=== PATIENT | female | born 1940 | race Caucasian/White ===

== ENCOUNTER 2018-11-07 08:00 | Outpatient (CLI) | payer OTHER, SELFPAY ==
--- NOTE | 2018-11-08 10:00 | DIABASSESS_ITS ---
DESCRIPTION: Hanane Vences at 78 years old presents for nutrition consult focused on diabetes management. She is wondering why she is referred, however she had a recent visit with her PCP who states she is looking for dietary recommendations and this was explained to her. She eats cereal, milk, banana and orange juice for berakfast; cheese turkey sandwich with mayonaise for lunch with fruit.? She has a vodka with orange juice and a glass of wine with dinner.? They often eat at the [employer] and she shares an entree of fish, salad and vegetable with her partner. She admits to a small portion of sweets occasionally.? BMI 23 Tests her blood sugars every morning always in the 140s this AM 145mg/dl.? She takes Metformin 500mg twice daily without side effects.? Her medical record indicates she also takes Glipizide without hypoglycemic symptoms.? A1c 7.5 Hanane takes walks or does yoga 7 days a week. INTERVENTION:? Reviewed diabetes food guide focused on mixing carbohydrate foods iwth protein/fat at meals and she voices interest in the guide.? Reviewed ADA guidelines for alcohol consumption for people at goal for their A1c.? Answered questions regarding varying food choices in her day and foods to add to maintain her weight. Explained if she is interested in finding out how foods affect her blood sugar she could monitor at different times of the day, i.e. before lunch or before bed to assess impact of food on blood sugar as well as range of? glycemic variation. Also reassured her her A1c is at goal considering her age. Reassured her she was at low risk for ferry terminal agent complications from uncontrolled diabetes. PLAN:? Hanane will use the diabetes food guide to help answer her food questions.? She will consider monitoring her blood sugars before lunch after her largest carbohydrate load. She knows to be in touch if she has further questions. Individual MNT 35 MINUTES. No DM group education series being offered at this time.
== END 2018-11-07 08:20 ==
PROVIDERS: Visit Provider Dietitian, Registered
DX: E11.9 Type 2 diabetes mellitus without complications (principal); Z79.84 Long term (current) use of oral hypoglycemic drugs; Z71.3 Dietary counseling and surveillance
CPT/HCPCS: 97802

== ENCOUNTER 2019-09-22 09:47 | Emergency (ER) | payer OTHER, SELFPAY ==
[2019-09-22] VITALS (35 sets, daily range): BP systolic 130–167; BP diastolic 56–101; PULSE 79–94; RESP 14–34; TEMP 37; O2SAT 96–100
--- NOTE | 2019-09-22 09:45 | RT.EKG_ITS ---
APPROVED REPORT Exam: Resting ECG Patient Location: E HR:81 bpm ECG Measurements Heart Rate 81 AXIS AK 150 P 69 QRSd 91 QRS 55 QT 363 T 31 QTc 422 Conclusion Sinus rhythm. Rate 81, no st elevation, non specific st changes inferior
--- NOTE | 2019-09-22 09:50 | W.ED.GENAD ---
Discharge Plan Disposition Patient Disposition: HOME Condition: Stable Discharge Details Chief Complaint: Chest Pain Clinical Impression: Chest pain, Elevated WBC count, Hypomagnesemia, Hyponatremia, Thyroid nodule Primary Care Provider: Unknown,Unknown ED Provider: Eneida Jimenes Home Meds and New Rx's Prescriptions: Continued metformin 1,000 mg Tablet 1,000 mg PO BID RF: 0 atorvastatin 40 mg Tablet 40 mg PO DAILY RF: 0 glipizide 10 mg Tablet 10 mg PO BID RF: 0 losartan 100 mg Tablet 100 mg PO DAILY RF: 0 Discharge Instructions Instructions: Chest Pain (ED), Hyponatremia (ED), Hypomagnesemia (ED) Additional Instructions: Your evaluation here is not suggestive of acute cardiac disease. You do have an elevated white count but did not have any evidence of infection at this point if you do develop symptoms such as fever/chills, shortness of breath, difficulty breathing, cough, belly pain or other new/worsening symptoms please seek care urgently once again. Your sodium and magnesium were low, you did have replenishment of both of these today. Your CT scan is concerning for nodule of your thyroid that should be followed up with your primary care. Please discuss at primary care appointment. Please call primary care on Tuesday to schedule follow-up appointment. Please return with any new or worsening symptoms. Referrals: Ricky Barrera MD [ [facility] STAFF PHYSICIAN] - Discharge Data Discharge Date/Time-TO BE ENTERED AT DEPARTURE: 09/22/19 15:00 Medical Decision Making Patient pepe 79-year-old female presents today with chief complaint of chest discomfort. Reports that she noted this around 8 AM and indicates the entirety of the upper chest area of discomfort. She reports the pain is maximal with deep breathing. Significant other reports that she did do push-ups yesterday and also had a cough last night after eating. Last night, the patient had reported foreign body sensation in her throat which is since resolved. She has not noticed this to be exertionally based. She has not had pain like this historically. No known cardiac disease. No known respiratory issues. No recent travel. Significant other is present and quite helpful in obtaining history as the patient does have some baseline confusion. Patient has had a history of left-sided breast cancer treated with radiation. She does have a radiation scar on the left lateral chest wall which they report is chronic. She states that radiation was last for an 1990. The radiation scar has had infections but it appears to be healthy per their report at this time. On exam, patient is resting comfortably. She does appear slightly anxious. Vital signs are stable and she is slightly hypertensive with a blood pressure 154/72 otherwise within normal limits. Lungs are clear, normal cardiac exam. She has no pain with palpation about the chest wall. No pain with stressing of the upper extremities trying to mimic her push-up she was doing yesterday. No crepitus. Abdominal exam is benign. No lower extremity swelling or calf tenderness. EKG was reviewed by . Patient is in sinus rhythm with a rate of 81, no acute ischemic changes noted. Labs were reviewed. Patient is a white count 14.96. Unclear where the infection is emanating from. She does have the unusual-looking scar on the left side of her chest but is nontender for the patient. It seems very localized to the area that is indurated and elevated. There is some underlying white tissue but this appears to be more consistent with calcifications. She has not endorsing any symptoms of illness otherwise. Her sodium is low at 130, patient will receive 1 L of normal saline. Magnesium is low at 1.4, will give her 1 g of here. Otherwise, electrolytes are within normal limits. Creatinine is 1.04. Troponin is less than 0.05. Chest x-ray was reviewed by radiologist ILANINGS: Lungs: Lung markings are diffusely coarsened with borderline hyperinflation. No definite dense consolidation. Left perihilar partially calcified density is irregularly marginated and is nonspecific at 4.5 x 1.7 x 3.1 cm. It is located relatively anteriorly on the lateral view. I am uncertain of the etiology here. It could be granulomatous or related to a rib end. Pleural space: No effusion or pneumothorax. Heart/Mediastinum: Heart size is not enlarged. The mediastinum is not widened. Mild sclerosis of the aortic arch. Bones/joints: Degenerative changes along the spine without acute fracture. There is a scoliosis. Soft tissues: The left breast is partially absent consistent with the given history of breast cancer. IMPRESSION: 1. No definite acute abnormality. 2. Partially calcified left thoracic lesion. CT may be helpful. This is unusual entity noted on imaging is consistent with the patient's scar that has been discussed at length with the patient and her significant other. Patient's d-dimer is elevated at emergency 1614 discussed this finding with the patient. And her family. She has been sedentary does have a history of cancer. She is not anticoagulated. I do feel that CT for PE protocol would be appropriate at this point. Also obtain repeat troponin. FINDINGS: Pulmonary arteries: Motion artifact limits evaluation of the pulmonary arteries beyond the 3rd order branches but I see no large or central pulmonary embolism. Aorta: Atherosclerotic changes noted in the ectatic aorta without gross aneurysm or dissection. Atherosclerotic changes of the coronary arteries. Atherosclerotic changes of the abdominal aorta extending into the mesenteric arteries. Thyroid: Low-density thyroid lesion on the right measures 19 mm can be followed. Lungs: Mild axial thickening in the lungs without dense consolidation. I favor dependent atelectatic changes in the bases. No spiculated mass or nodule. Pleural space: Unremarkable. No pneumothorax. No pleural effusion. Heart: The heart is not enlarged but there is a small amount of pericardial fluid present. No significant mediastinal fluid. Mediastinal space: Small hiatal hernia Bones/joints: The remaining bony elements demonstrate degenerative changes without acute fracture. No additional lytic or blastic disease. Soft tissues: The left thoracic calcification identified on the plain film appears to represent a densely calcified region of breast parenchyma along the superior margin measuring 2.3 x 4.3 x 3.7 cm. The subjacent bony elements here, including the distal clavicle and anterior 1st rib, are sclerotic. This would raise the question of prior radiotherapy changes but correlation with oncologic history is recommended. I have no prior imaging of this breast lesion. It requires appropriate follow-up. The volume of left breast tissue is diminished on the left comparison to the right suggesting prior partial mastectomy. IMPRESSION: 1. Motion limited exam without large or central pulmonary embolism. 2. Clear lungs. 3. Densely calcified left breast parenchyma, with volume loss of the left breast in comparison to the right, probably post treatment related. Sclerotic changes in the underlying bony elements. Correlation with oncologic history is suggested. In the absence of prior studies, this breast lesion also requires appropriate follow-up. 4. Small amount of pericardial fluid. 5. Atherosclerotic changes of the aorta and coronary arteries. 6. Thyroid lesion requiring appropriate follow-up. Recommend follow-up thyroid ultrasound. Discussed these findings with the patient and her significant other. They will follow-up with primary care regarding thyroid lesion. Initially, they reported the patient did not have a local primary care. However, patient has been seen by [facility] in the past. Typically, they live the majority of the year in [place] but they are staying here secondary to COVID-19. They will discuss this further with primary care. Repeat troponin remains stable at less than 0.05 and no changes noted in the EKG. Discussed this with patient and significant other. We did discuss disposition at length. We did discuss inpatient versus outpatient management. At this point, they prefer outpatient management and do live locally and he will return with worsening symptoms. They will follow-up closely with primary care. Strict return precautions were given. We discussed the discomfort it may be associated with the patient she was doing yesterday, potentially from the cough that she had birthday last night or from stress/anxiety anxiety as this is been an issue for her in the past. All of their questions and concerns were addressed in agreement this plan. HPI General Mode of arrival: ambulatory. Date/Time Provider Initiated Documentation: 09/22/19 09:49. Limitations to Documentation: altered mental status (mild confusion at baseline). History of Present Illness 79 year old F presents to the emergency department with the chief complaint of Chest discomfort, described as mild, Quality is described as aching, and is localized to the chest. Patient reports no radiation. Patient started experiencing this hour(s) (noted this AM) and it has been intermittent. No relieving factors improve symptom(s), Other factors that worsen symptoms (deep breathing, non exertional) . Patient notes confusion (baseline, unchanged per signficant other), chest pain and cough (partner reports cough last night briefly after eating with FB sensation); denies diaphoresis, fever/chills, loss of appetite, nausea/vomiting, rash (chronic left sided chest lesion that is unchanged from baseline), shortness of breath and weakness. Patient did receive the following treatments prior to arrival, none Related Data Home Medications Medication Instructions Recorded Confirmed atorvastatin 40 mg PO DAILY 09/22/19 09/22/19 glipizide 10 mg PO BID 09/22/19 09/22/19 losartan 100 mg PO DAILY 09/22/19 09/22/19 metformin 1,000 mg PO BID 09/22/19 09/22/19 Allergies Allergy/AdvReac Type Severity Reaction Status Date / Time No Known Allergies Allergy Unverified 09/22/19 11:50 Review of Systems Constitutional Constitutional: Reports as per HPI, Denies chills, Denies fever(s), Denies headache(s), Denies lethargy and Denies poor appetite Eyes Eyes: Denies change in vision ENT Ears, Nose, Mouth, and Throat: Denies dizziness and Denies headache(s) Cardiovascular Cardiovascular: Reports as per HPI, Reports chest pain, Denies leg edema, Denies lightheadedness, Denies radiating jaw, neck or arm pain, Denies palpitations, Denies dyspnea and Denies dyspnea on exertion Respiratory Respiratory: Reports as per HPI, Denies chest congestion, Denies cough, Reports pain on inspiration, Denies pain with cough, Denies dyspnea, Denies dyspnea on exertion and Denies wheezing Gastrointestinal Gastrointestinal: Reports as per HPI, Denies abdominal pain, Denies diarrhea, Denies nausea and Denies vomiting Musculoskeletal Musculoskeletal: Reports as per HPI and Denies back pain Integumentary/Breasts Skin/Breast: Reports as per HPI and Denies rash Neurologic Neurologic: Reports as per HPI, Denies dizziness and Denies headache(s) Endocrine Endocrine: Denies palpitations Allergic/Immunologic Allergic/Immunologic: Denies wheezing [facility] Social History Smoking/Tobacco Use Status: Never Alcohol Intake: current Alcohol Intake frequency: 0-2 drinks per day Substance use type: does not use Current gender identity: female Exam Const General: cooperative, healthy appearing, comfortable, no acute distress and well developed Nutritional Appearance: average body habitus and well nourished Orientation: alert, awake, oriented x3 and confused (baseline mild confusion aparant with furhter questioning, normal per partne) [facility] Head: normal to inspection Ears: hearing grossly normal bilaterally Mouth: moist mucous membranes Chest Chest: normal inspection of the chest, normal palpation of entire chest wall and no crepitus Resp Effort & Inspection: normal respiratory effort, able to speak in complete sentences and no respiratory distress Auscultation: clear to auscultation bilaterally, no rales, no rhonchi and no wheezes Cardio Rate: regular rate Rhythm: regular rhythm Heart Sounds: S1 normal and S2 normal GI Inspection: normal to inspection, no edema and non-distended Palpation: soft, no hepatosplenomegaly, not firm, no guarding, not rigid and nontender Auscultation: normal bowel sounds Back/Spine/Pelvis Back: no CVA tenderness Thoracic/Lumbar Spine: thoracic and lumbar spine normal to inspection Skin General skin exam: no rashes or lesions noted Trauma: no lacerations or abrasions Neuro General: patient alert, patient awake and patient oriented x3 Cognition: normal cognition Speech: speech normal Gait: normal gait Extrem General: normal to inspection, capillary refill normal, no pedal edema, no calf tenderness and normal gait Right upper extremity: normal to inspection (no pain with ROM or resistance of BUE) and full ROM Left upper extremity: normal to inspection and full ROM Psych Appearance: grossly normal and well kempt Mental Status: mental status grossly normal Speech and Movement: speech and movement normal
[2019-09-22 10:15] LABS: Abs Immature Grans 0.05 10^3/uL (0.0-0.06); Absolute Basophil Count 0.03 10^3/uL (0.0-0.2); Absolute Lymphocyte Count 1.23 10^3/uL (1.2-3.4); Basophils % 0.2; Eosinophils % 0.9; HCT 40.9 % (36.0-46.0); HGB 13.4 g/dL (11.2-15.7); Immature Grans % 0.3; Lymphocytes % 8.2; MCH 31.6 pg (27.0-33.0); MCHC 32.8 % (32.0-36.0); MCV 96.5 fL (80-95); MPV 10.2 fL (8.0-11.0); Monocytes % 8.6; Neutrophils % 81.8; Nucleated RBC 0 %; Platelet Count 276 10^3/uL (130-400); RBC 4.24 10^6/uL (3.93-5.22); RDW-SD 41.8 fL; WBC 14.96 10^3/uL (4.4-10.8)
[2019-09-22 10:16] LABS: Absolute Eosinophil Count 0.13 10^3/uL (0.0-0.7); Absolute Monocyte Count 1.29 10^3/uL (0.1-0.8); Absolute Neutrophil Count 12.24 10^3/uL (1.2-6.7)
[2019-09-22 10:34] LABS: ALT 24 U/L (14-59); AST 16 U/L (15-37); Albumin 3.6 g/dL (3.4-5.0); Alkaline Phosphatase 83 U/L (46-116); Anion Gap 5.6 mmol/L (3-11); BUN 16 mg/dL (7-18); Bilirubin, Total 0.7 mg/dL (0.2-1.0); CO2 25.4 mmol/L (21.0-32.0); CREATININE 1.04 mg/dL (0.55-1.02); Calcium 9.4 mg/dL (8.5-10.1); Chloride 99 mmol/L (98-107); Estimated GFR 50.86 (mL/min/1.73m2); Glucose 188 mg/dL (74-106); Magnesium 1.4 mg/dL (1.8-2.4); Potassium 4.3 mmol/L (3.5-5.1); Sodium 130 mmol/L (136-145); Total Protein 8.1 g/dL (6.4-8.2)
[2019-09-22 10:35] LABS: Troponin I < 0.05 ng/mL (<0.06)
--- NOTE | 2019-09-22 10:41 | DI.RAD_ITS ---
EXAM: XR CHEST 2V PA LATERAL CLINICAL HISTORY: CP TECHNIQUE: 2D digital imaging was performed. COMPARISON: No exams were available for comparison FINDINGS: Heart size is normal. The aorta shows calcification. There there is an elongated anterior area of c alcifications which may lie within the anterior left chest wall. There are mild underlying fibrotic changes. No infiltrate, effusion or pulmonary edema is seen. There are no thoracic compression frac tures or evidence of pneumothorax. IMPRESSION: No acute abnormality.
--- NOTE | 2019-09-22 10:46 | DI.VRAD_ITS ---
PROCEDURE INFORMATION: Exam: XR Chest, 2 Views Exam date and time: 09/22/2019 10:38 AM Age: 79 years old Clinical indication: Chest pain; Type not specified; Patient HX: Patient not a good historian. Patient sts had breast cancer 20 yrs ago, ? if patient had surgery. TECHNIQUE: Imaging protocol: XR of the chest Views: 2 views. COMPARISON: No relevant prior studies available. FINDINGS: Lungs: Lung markings are diffusely coarsened with borderline hyperinflation. No definite dense consolidation. Left perihilar partially calcified density is irregularly marginated and is nonspecific at 4.5 x 1.7 x 3.1 cm. It is located relatively anteriorly on the lateral view. I am uncertain of the etiology here. It could be granulomatous or related to a rib end. Pleural space: No effusion or pneumothorax. Heart/Mediastinum: Heart size is not enlarged. The mediastinum is not widened. Mild sclerosis of the aortic arch. Bones/joints: Degenerative changes along the spine without acute fracture. There is a scoliosis. Soft tissues: The left breast is partially absent consistent with the given history of breast cancer. IMPRESSION: 1. No definite acute abnormality. 2. Partially calcified left thoracic lesion. CT may be helpful. Dictated and Authenticated by: Abdias Kumar MD. Ordering:MARYJANE Monique MD
[2019-09-22 11:08] LABS: D-Dimer 1614 ng/mlFEU (<500)
[2019-09-22] MEDS: MAGNESIUM SULFATE 1 GM/100 ML BAG IVPB (11:33)
[2019-09-22] MEDS: Normal Saline 1,000 ML 1000 ML IV (11:33)
--- NOTE | 2019-09-22 12:00 | DI.CT_ITS ---
EXAM: CT CHEST PE CTA CLINICAL HISTORY: pleuritic pain, elevated d-dimer. TECHNIQUE: Imaging Protocol: Axial CT angiography was performed with multi-slice acquisition and mu lti-planar and/or 3D reconstructions. CONTRAST MATERIAL: Intravenous: Omnipaque 350 Contrast volume:100 cc COMPARISON: No exams were available for comparison FINDINGS: Exam is somewhat limited by respiratory motion. Pulmonary Arteries: No evidence of filling defect to suggest pulmonary emboli. Tracheobronchial tree: Patent where visualized. Mediastinum and Dianna: No dominant adenopathy or fluid collection. Pulmonary parenchyma: No consolidation or dominant measurable mass. No architectural distortion. Pleura: No effusion or pneumothorax. Heart: The heart is not dilated. Minimal coronary artery calcifications are seen. Trace pericardial e ffusion. Aorta: Thoracic aorta ectatic. No evidence of dissection. Atherosclerotic changes.. Upper abdomen: Small hiatal hernia. Bones: Degenerative changes. No compression fractures. Soft tissues: There is a dense calcification in the upper left chest wall subcutaneous fat and upper pectoral muscle. The adjacent ribs appear sclerotic. Findings may be secondary to previous radiatio n. Clinical correlation is recommended. There is a small circumscribed nodule in the right lobe the thyroid, likely colloid cyst. IMPRESSION: No evidence of pulmonary embolism. Trace pericardial effusion. Large calcification in the left upper chest wall and adjacent bony changes which could be secondary to previous radiation. Clinical corre lation is recommended. RADIATION DOSE DELIVERED: 257.18mGy.cm Total DLP DATA REPOSITORY: All CT scans at this facility are submitted to the National Radiology Data Registry (NRDR) Dose Index Registry (DIR) with the [employer] (ACR). RADIATION OPTIMIZATION: All CT scans at this facility use at least one of these dose optimization te chniques: automated exposure control; mA and/or kV adjustment per patient size (includes targeted exa ms where dose is matched to clinical indication); or iterative reconstruction.
[2019-09-22 12:09] LABS: Bilirubin Negative (Negative); Blood Trace-intact (Negative); Clarity Clear (Clear); Glucose Negative (Negative); Ketones Negative (Negative); Leukocyte Esterase Negative (Negative); Nitrite Negative (Negative); Urobilinogen 0.2 EU/dL (Up TO 0.2)
[2019-09-22] MEDS: Omnipaque 350 MG/ML 100 ML BTL IJ (12:14)
[2019-09-22] MEDS: Normal Saline - Diluent 50 ML VIAL IV (12:14)
[2019-09-22 12:23] LABS: Epithelial Cells Rare HPF (Negative); WBC Negative HPF (0-5)
[2019-09-22 12:24] LABS: Bacteria Negative HPF (Negative); C & S Indicated? No; Casts 0-2 Hyaline LPF (Negative); Crystals Negative HPF (Negative); Mucus Moderate (Negative)
--- NOTE | 2019-09-22 13:03 | DI.VRAD_ITS ---
PROCEDURE INFORMATION: Exam: CT Angiography Chest With Contrast Exam date and time: 09/22/2019 12:02 PM Age: 79 years old Clinical indication: Chest pain; Type not specified TECHNIQUE: Imaging protocol: Computed tomographic angiography of the chest with intravenous contrast. 3D rendering: MIP and/or 3D reconstructed images were created by the technologist. Radiation optimization: All CT scans at this facility use at least one of these dose optimization techniques: automated exposure control; mA and/or kV adjustment per patient size (includes targeted exams where dose is matched to clinical indication); or iterative reconstruction. Contrast material: OMNIPAQUE 350; Contrast volume: 100 ml; Contrast route: INTRAVENOUS (IV); COMPARISON: CR XR CHEST 2V PA LATERAL 09/22/2019 10:38 AM FINDINGS: Pulmonary arteries: Motion artifact limits evaluation of the pulmonary arteries beyond the 3rd order branches but I see no large or central pulmonary embolism. Aorta: Atherosclerotic changes noted in the ectatic aorta without gross aneurysm or dissection. Atherosclerotic changes of the coronary arteries. Atherosclerotic changes of the abdominal aorta extending into the mesenteric arteries. Thyroid: Low-density thyroid lesion on the right measures 19 mm can be followed. Lungs: Mild axial thickening in the lungs without dense consolidation. I favor dependent atelectatic changes in the bases. No spiculated mass or nodule. Pleural space: Unremarkable. No pneumothorax. No pleural effusion. Heart: The heart is not enlarged but there is a small amount of pericardial fluid present. No significant mediastinal fluid. Mediastinal space: Small hiatal hernia. Lymph nodes: No confluent lymphadenopathy. Bones/joints: The remaining bony elements demonstrate degenerative changes without acute fracture. No additional lytic or blastic disease. Soft tissues: The left thoracic calcification identified on the plain film appears to represent a densely calcified region of breast parenchyma along the superior margin measuring 2.3 x 4.3 x 3.7 cm. The subjacent bony elements here, including the distal clavicle and anterior 1st rib, are sclerotic. This would raise the question of prior radiotherapy changes but correlation with oncologic history is recommended. I have no prior imaging of this breast lesion. It requires appropriate follow-up. The volume of left breast tissue is diminished on the left comparison to the right suggesting prior partial mastectomy. IMPRESSION: 1. Motion limited exam without large or central pulmonary embolism. 2. Clear lungs. 3. Densely calcified left breast parenchyma, with volume loss of the left breast in comparison to the right, probably post treatment related. Sclerotic changes in the underlying bony elements. Correlation with oncologic history is suggested. In the absence of prior studies, this breast lesion also requires appropriate follow-up. 4. Small amount of pericardial fluid. 5. Atherosclerotic changes of the aorta and coronary arteries. 6. Thyroid lesion requiring appropriate follow-up. Recommend follow-up thyroid ultrasound. Dictated and Authenticated by: Abdias Kumar MD. Ordering:MARYJANE Monique MD
[2019-09-22 13:21] LABS: Troponin I < 0.05 ng/mL (<0.06)
== END 2019-09-22 15:00 | disposition home or self-care (01) ==
PROVIDERS: Emergency Provider Physician Assistant
DX: R07.89 Other chest pain (principal); E83.42 Hypomagnesemia; E87.1 Hypo-osmolality and hyponatremia; D72.829 Elevated white blood cell count, unspecified; R93.0 Abnormal findings on diagnostic imaging of skull and head, not elsewhere classified; R79.1 Abnormal coagulation profile
CPT/HCPCS: 36415; 71275; 80053; 93005; 96361; 96365; 99285; 71046; 81003; 81015; 83735; 84484; 85025; 85379; 93010; J3475; J3490

== ENCOUNTER 2022-12-16 15:50 | Outpatient (REF) | payer MEDICARE, SELFPAY ==
[2022-12-16 21:36] LABS: Abs Immature Grans 0.01 10^3/uL (0.0-0.06); Absolute Basophil Count 0.04 10^3/uL (0.0-0.2); Absolute Eosinophil Count 0.21 10^3/uL (0.0-0.7); Absolute Lymphocyte Count 1.78 10^3/uL (1.2-3.4); Absolute Monocyte Count 0.89 10^3/uL (0.1-0.8); Basophils % 0.6; Eosinophils % 3.3; HCT 36.9 % (36.0-46.0); HGB 12.2 g/dL (11.2-15.7); Immature Grans % 0.2; Lymphocytes % 28.1; MCH 30.6 pg (27.0-33.0); MCHC 33.1 % (32.0-36.0); MCV 93 fL (80-95); MPV 11.4 fL (8.0-11.0); Monocytes % 14.1; Neutrophils % 53.7; Platelet Count 228 10^3/uL (130-400); RBC 3.99 10^6/uL (3.93-5.22); RDW 12.1 % (11.7-14.6); RDW-SD 41.6 fL; WBC 6.33 10^3/uL (4.4-10.8)
[2022-12-16 21:52] LABS: ALT 33 U/L (14-59); AST 25 U/L (15-37); Albumin 3.5 g/dL (3.4-5.0); Alkaline Phosphatase 76 U/L (46-116); Anion Gap 7.9 mmol/L (3-11); BUN 19 mg/dL (7-18); Bilirubin, Total 0.3 mg/dL (0.2-1.0); CO2 28.1 mmol/L (21.0-32.0); CREATININE 0.9 mg/dL (0.55-1.02); Calcium 9.8 mg/dL (8.5-10.1); Calculated LDL 38 mg/dL (<100); Chloride 98 mmol/L (98-107); Cholesterol 109 mg/dL (<200); Estimated GFR 63.04 (mL/min/1.73m2); Glucose 81 mg/dL (74-106); HDL Cholesterol 46 mg/dL (40-60); Potassium 4.8 mmol/L (3.5-5.1); Sodium 134 mmol/L (136-145); Total Protein 7.5 g/dL (6.4-8.2); Triglyceride 128 mg/dL (<150)
== END 2022-12-16 15:51 | disposition home or self-care (01) ==
LOC: NCHCN 15:50
PROVIDERS: Visit Provider Family Medicine
DX: I10 Essential (primary) hypertension (principal); E11.9 Type 2 diabetes mellitus without complications; E11.621 Type 2 diabetes mellitus with foot ulcer; L98.498 Non-pressure chronic ulcer of skin of other sites with other specified severity
CPT/HCPCS: 80053; 80061; 85025

== ENCOUNTER → 2023-01-21 10:22 | Outpatient (BNVA) | payer MEDICARE, SELFPAY | PROVIDERS: PCP Family Medicine; Referring Provider Family Medicine; Visit Provider Surgery | DX: S21.102A Unspecified open wound of left front wall of thorax without penetration into thoracic cavity, initial encounter (principal); X58.XXXA Exposure to other specified factors, initial encounter | CPT/HCPCS: 99203 ==

== ENCOUNTER 2023-01-24 10:27 | Day surgery (SDC) | payer MEDICARE, SELFPAY ==
[2023-01-24 10:53] VITALS: BP 168/59; PULSE 80; RESP 20; TEMP 36.2; O2SAT 98
--- NOTE | 2023-01-24 11:43 | ANES.PREOP_ITS ---
General Info Date of Service Date Performed: 01/24/23 Height: 5 ft 6 in Weight: 61.8 kg Body Mass Index (BMI): 21.9 Surgical Procedure: Operation Date: 01/24/23 12:10 Proposed Procedure Side Surgeon p Chest Wound Debridement Left Jailyn Epperson MD Meds Allergies and Home Medications Allergies Allergy/AdvReac Type Severity Reaction Status Date / Time No Known Allergies Allergy Unverified 01/24/23 10:53 Home Medication Medication Instructions Recorded atorvastatin 40 mg tablet 40 mg PO DAILY 09/22/19 losartan 100 mg tablet 100 mg PO DAILY 09/22/19 metformin 1,000 mg tablet 1,000 mg PO BID 09/22/19 multivitamin 1 tab PO DAILY 12/21/22 cephalexin 500 mg capsule 500 mg PO BID #10 caps 01/21/23 glipizide 10 mg tablet, extended 10 mg PO DAILY 01/21/23 release 24 hr Current Visit Medications: Current Medications Generic Name Dose Route Start Last Admin Trade Name Freq PRN Reason Stop Dose Admin Ringer's Solution 1,000 mls @ 80 mls/hr 01/24/23 06:00 IV 02/20/23 23:59 INFUSION TAYLOR Cefazolin Sodium/Dextrose 2 gm in 50 mls @ 100 mls/hr 01/24/23 06:00 Ancef Duplex IVPB 02/20/23 23:59 PREOP TAYLOR IV Miscellaneous Supplies 1 each 01/24/23 06:00 Iv Access IV 02/20/23 23:59 DIRECTED TAYLOR Sodium Chloride 0 ml 01/24/23 06:00 Normal Saline Flush 10 Ml Syr IV 02/20/23 23:59 PRN PRN Sodium Chloride 0 ml 01/24/23 06:00 Normal Saline 10 Ml Vial IJ 02/20/23 23:59 DIRECTED PRN Sterile Water 0 ml 01/24/23 06:00 Water,Injection,Sterile 10 Ml Vial IJ 02/20/23 23:59 DIRECTED PRN PFSH Active Problems Active Problems: Problem Status Onset Code Wound, open, chest wall with complication S21.109A Hx of breast cancer ~1990 Z85.3 Foot ulcer, left L97.529 Hypertension I10 Diabetes mellitus E11.9 Skin ulcer L98.499 Medical History Medical History Onychomycosis Right thyroid nodule Osteoarthritis Unspecified atherosclerosis of [place] arteries of extremities, bilateral legs Surgical History Surgical History (Updated 01/24/23 @ 10:59 by Danika Major RN) History of hysterectomy S/P lumpectomy of breast (~1990) Tobacco Smoking/Tobacco Use Status: Never Alcohol Alcohol Intake: current Alcohol intake frequency: a few times a week Alcohol type: wine Substance Use Substance use type: does not use Vital Signs and Lab Results Vital Signs Most Recent Vital Signs in EMR: Most Recent Vital Signs Temp Pulse Resp BP Pulse Ox 36.2 C L 80 20 168/59 H 98 01/24/23 10:53 01/24/23 10:53 01/24/23 10:53 01/24/23 10:53 01/24/23 10:53 Point of Care Results Point of Care Results: Finger Stick Blood Glucose 136 01/24/23 10:52 Lab Results Blood Type / Crossmatch: No Data to Display Complete Blood Count: No Data to Display Complete Metabolic Panel: No Data to Display Liver Function Panel: No Data to Display Coagulation Panel: No Data to Display Cardiac Panel: No Data to Display Arterial Blood Gas: No Data to Display Venous Blood Gas: No Data to Display Pancreas Panel: No Data to Display Thyroid Panel: No Data to Display Infectious Disease: No Data to Display Blood Cultures: No Data to Display Toxicology Panel: No Data to Display Imaging and Studies Imaging and Studies Study information below may be from another EMR and interpreted by another provider. Please see original notes in EMR for more complete details. EKG Summary: Conclusion Sinus rhythm. Rate 81, no st elevation, non specific st changes inferior 09/22/19 Anesthesia Assessment and Plan Anesthesia History Personal History: No History of Anesthesia Complications Family History: No Family History of Anesthesia Complications Exercise Tolerance Exercise Tolerance: Metabolic Equivalents>4 Cardiac & Pulmonary Exam Cardiac Exam: Normal S1/S2 Heart Sounds and Heart Murmur Present (new, significant murmur auscultated in all strauss) Pulmonary Exam: Clear Bilateral Breath Sounds Implantable Cardiac Device Does patient have a Pacemaker or an ICD?: No Airway Exam Known Difficult Airway: No Mallampati Class: Unable to Assess Mouth Opening: Unable to Assess Thyromental Distance: Other Neck Range of Motion: Unable to Assess Neck Circumference: Normal Teeth Condition: Unable to Assess ASA Classification ASA Score: ASA 2 Emergency Case?: No NPO Status NPO Status: NPO Clears >2 hours, Solids >8 hours Anesthesia Plan Resuscitation Status: Full Code Anesthesia Technique: MAC Anesthesia Airway Planned: Natural Airway Monitors Used: Standard Monitors Preoperative Comments:: Full assessment not completed due to new murmur, patient will be postponed until echo can be completed.
[2023-01-24 11:45] VITALS: BMI 21.9
== END 2023-01-24 10:28 | disposition home or self-care (01) ==
LOC: SUR 10:31
PROVIDERS: PCP Family Medicine; Visit Provider Surgery
DX: Z53.09 Procedure and treatment not carried out because of other contraindication (principal)
CPT/HCPCS: J1885; J2001; J2405

== ENCOUNTER → 2023-01-25 00:42 | Outpatient (CLI) | payer MEDICARE, SELFPAY | PROVIDERS: PCP Family Medicine; Visit Provider Surgery | DX: R01.1 Cardiac murmur, unspecified (principal) | CPT/HCPCS: 93306 ==

== ENCOUNTER → 2023-02-09 14:32 | Outpatient (BNVA) | payer MEDICARE, SELFPAY | PROVIDERS: PCP Family Medicine; Referring Provider Family Medicine; Visit Provider Podiatrist | DX: E11.42 Type 2 diabetes mellitus with diabetic polyneuropathy (principal); E11.621 Type 2 diabetes mellitus with foot ulcer; L97.519 Non-pressure chronic ulcer of other part of right foot with unspecified severity; L60.3 Nail dystrophy; R09.89 Other specified symptoms and signs involving the circulatory and respiratory systems; R60.0 Localized edema; R23.1 Pallor; L65.9 Nonscarring hair loss, unspecified; L97.529 Non-pressure chronic ulcer of other part of left foot with unspecified severity | CPT/HCPCS: 11056; 11721; 99214 ==

== ENCOUNTER 2023-02-11 07:48 | Day surgery (SDC) | payer MEDICARE, SELFPAY ==
--- NOTE | 2023-02-10 15:45 | W.PM.DSUDISC ---
Date of service: 02/11/23 Time of Service: 10:26 Discharge Plan Disposition Patient Disposition: Home Condition: Good Discharge Details Reason For Visit: Excision of left chest wall wound Attending Provider: Gray Reddy Primary Care Provider: Yang Bhakta Home Meds and New Rx's Prescriptions: New tramadol 50 mg tablet 50 mg PO Q8H PRNQty: 15 0RF Rx Instructions: Take 1 tablet by mouth if needed for more severe pain. Continued glipizide 10 mg tablet extended release 24hr 10 mg PO DAILY multivitamin Tablet 1 tab PO DAILY metformin 1,000 mg Tablet 1,000 mg PO BID atorvastatin 40 mg Tablet 40 mg PO DAILY losartan 100 mg Tablet 100 mg PO DAILY Discontinued cephalexin 500 mg capsule 500 mg PO BID Qty: 10 0RF Patient Comments: 02/11/23 pt and partner reports pt no lnger takes this medication. Randy Prescott Car Retarder Operator Instructions Additional Instructions: Bleeding, we were able to remove the mass on the left side of your chest today. It did extend down to, and include, the layer of tissue that covers the muscular portion of the chest wall. There is also some infiltration of the mass into the most superficial layers of the skin. I did my best to remove this as much as possible while preserving options for future reconstruction and closure. Like we discussed beforehand, I sent a portion of this tissue off for analysis by the pathologist and referred to determine the true cause of it. I also sent portions of it off to the lab to test bacterial infection. Once I have that information, we will use it to help guide whether or not we should use another round of antibiotics to help protect the skin. Over the next 24 hours, I would expect that the area around your skin and shoulder to be quite painful. I recommend that you use [id number] ibuprofen and Tylenol, if you can tolerate it. I have also put in a prescription for a stronger pain medication called tramadol that you can use up to every 8 hours if needed. That medication can be a little strong, so be careful with the first dose. Underneath of the bandage on your chest is a large piece of gauze that has been soaked in Betadine to help sterilize the wound. This should be left in place until tomorrow. At that point, about half an hour before you are ready to change the bandage, take one of the tramadol pills. After about 30 minutes, remove the outer Band-Aid, and remove the gauze packing. It would be stained brown from the Betadine, and may have some edges well. This can be discarded. Next, trim the small piece of clean gauze to about 8 inches long. Moistened with saline solution provided. Gently pack it into the wound, and apply a new Band-Aid on top. The top Band-Aid can be changed multiple times through the day if needed. This whole process should be performed at least 1 time per day. If you can do it twice per day, that would be helpful. 1. Resume all of your medications. 2. Use heating pads and ice packs over the area to help provide comfort 3. Okay to use tylenol and ibuprofen over the counter as needed. Use tramadol as needed for more severe pain 4. Leave bandage in place until tomorrow, then change the bandage according to the instructions. 5. You are welcome to shower with warm soapy water in the next 24 hours. You should leave the bandage in place while you shower, then change it completely as described above once you are out of the shower. 6. No soaking or tub baths until I see you in the office. 7. No heavy lifting until I see you in the office. 8. Call the office (or go directly to the emergency room after hours) if you notice any of the following: Develop chills (warm to touch), or if you have a thermometer and your temperature is above 101 Difficulty breathing or difficultly swallowing Persistent vomiting Any bleeding ? exceeding one tablespoon 9. Call your physician if the site where your intravenous was started becomes red, swollen, painful, and warm to touch. Stand Alone Forms: Anesthesia Discharge InstVanessa Ruggiero (DSU) Activity:: Activity as Tolerated Remove Dressings/Wound Care:: 24 hours Shower/Bathe:: 24 hours Diet:: As Tolerated Discharge Orders Discharge Orders: Discharge Order (Routine); Ordered 02/10/23 Ordered By: Gray Reddy Other Ambulatory Orders: Surgical AerobicCult w GmStain (Routine) Timeframe: 1 Day Facility: [facility] - Location: Laboratory Outpatient - [facility] Ordered By: Gray Reddy Discharge Data Discharge Comment: DS: Diagnosis Discharge Diagnosis (1) Wound, open, chest wall with complication: Status: Acute Asessment and Plan: Excised and packed; follow-up in the office next week
--- NOTE | 2023-02-10 15:47 | W.PM.OP ---
Date of service: 02/11/23 Time of Service: 10:41 Operative Note Operative Note DATE OF PROCEDURE: 02/11/23 PRE-OP DIAGNOSIS: Left chest wall mass POST-OP DIAGNOSIS: same PROCEDURE: Excisional debridement with irrigation and packing of the left chest wall wound SURGEON: Gray Reddy DIVIDEND DEPOSIT ENTRY CLERK: Paulette Lund ANESTHESIA TYPE: Local By Surgeon and MAC Refer to Anesthesia Record ESTIMATED BLOOD LOSS: 20 PATHOLOGY: other (Left chest wall mass for permanent pathology and Gram stain with culture) COMPLICATIONS: None Patient was transported to: same day Patient's condition: stable Indications: Felicita is an 82-year-old woman with a history of left-sided breast cancer status post lumpectomy and radiation. Over the past several years, she has had an open wound on the left side of her chest wall in the area of previous radiation. CT shows large calcified mass extending down towards the pectoralis. She been treated with antibiotics with minimal change in the character of the surrounding skin. She needs excisional debridement for definitive tissue diagnosis and treatment planning Findings: Calcified serpiginous mass extending from the skin down to the pectoralis fashion Procedure Description: After the initiation of anesthesia, I prepped and draped the left chest wall in the usual fashion. I established a generous field block using local anesthetic with epinephrine. Next, I used 15 blade scalpel to excise a small portion of skin surrounding the open wound. This was performed a semielliptical fashion along the long axis of the wound. I would estimate the length of the incision to be about 7 cm long, and the width of the skin level to be about 3. On the lateral aspect, I continued this dissection down into the subcutaneous fat along the underside of the mass. It tracked down onto the fascia of the pectoralis major. The dissection was continued medially along the underside. I did have to come through some portion of the abnormal tissue towards the medial aspect, and cephalad portion of this. It felt like it probably extended down onto the clavicle. Some of the skin along the medial aspect was quite indurated, and the margin was quite hard consistent with some calcification on the dermis. Will order to preserve as many reconstruction options as possible, I suspect there is some remaining pathology along the skin edge. However, I do believe that if majority of the pathology has been removed, we certainly have enough for definitive tissue diagnosis, as well as culturing of the tissue of in the case that there is bacterial colonization if not infection present. They irrigated the wound completely. Hemostasis was achieved with Bovie electrocautery. Given the size of the wound, and not in certainty of diagnosis, I did think that the safest thing to do at this point was to pack the wound. Therefore, using sterile Curlex that was soaked with some Betadine, and lightly packed the wound and applied some superficial dressings. The patient was then allowed to awaken from the anesthetic and transferred back to the same-day surgery unit.
[2023-02-11 08:29] VITALS: BP 145/66; PULSE 76; RESP 16; TEMP 36.5; O2SAT 98
[2023-02-11] MEDS: Lactated Ringers 1,000 ML 80 ML IV (08:53)
--- NOTE | 2023-02-11 09:08 | W.ANESPRE ---
General Info Date of Service Date Performed: 02/11/23 Height: 5 ft 6 in Weight: 62.142 kg Body Mass Index (BMI): 22.1 Surgical Procedure: Operation Date: 02/11/23 09:25 Proposed Procedure Side Surgeon p Debridement of Chest Lesion Left Gray Reddy MD Meds Allergies and Home Medications Allergies Allergy/AdvReac Type Severity Reaction Status Date / Time No Known Allergies Allergy Unverified 02/11/23 08:37 Home Medication Medication Instructions Recorded atorvastatin 40 mg tablet 40 mg PO DAILY 09/22/19 losartan 100 mg tablet 100 mg PO DAILY 09/22/19 metformin 1,000 mg tablet 1,000 mg PO BID 09/22/19 multivitamin 1 tab PO DAILY 12/21/22 cephalexin 500 mg capsule 500 mg PO BID #10 caps 01/21/23 glipizide 10 mg tablet, extended 10 mg PO DAILY 01/21/23 release 24 hr Current Visit Medications: Current Medications Generic Name Dose Route Start Last Admin Trade Name Freq PRN Reason Stop Dose Admin Ringer's Solution 1,000 mls @ 80 mls/hr 02/11/23 06:00 02/11/23 08:53 IV 02/11/23 23:59 80 mls/hr INFUSION TAYLOR Administration Cefazolin Sodium/Dextrose 2 gm in 50 mls @ 100 mls/hr 02/11/23 06:00 Ancef Duplex IVPB 02/11/23 23:59 PREOP TAYLOR IV Miscellaneous Supplies 1 each 02/11/23 06:00 Iv Access IV 02/11/23 23:59 DIRECTED TAYLOR Morphine Sulfate 2 mg 02/10/23 15:48 Morphine 4 Mg/Ml Syr IVP 03/12/23 15:47 Q1H PRN PRN Sodium Chloride 0 ml 02/11/23 06:00 Normal Saline Flush 10 Ml Syr IV 02/11/23 23:59 PRN PRN Sodium Chloride 0 ml 02/11/23 06:00 Normal Saline 10 Ml Vial IJ 02/11/23 23:59 DIRECTED PRN Sterile Water 0 ml 02/11/23 06:00 Water,Injection,Sterile 10 Ml Vial IJ 02/11/23 23:59 DIRECTED PRN Tramadol HCl 50 mg 02/10/23 15:48 Tramadol 50 Mg Tab PO 03/12/23 15:47 Q6H PRN PRN Pain PFSH Active Problems Active Problems: Problem Status Onset Code Nail dystrophy L60.3 Calcaneal spur of left foot M77.32 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 Wound, open, chest wall with complication S21.109A Onychomycosis B35.1 Osteoarthritis M19.90 Unspecified atherosclerosis of [place] arteries of extremities, bilateral legs I70.203 Foot ulcer, left L97.529 Hypertension I10 Diabetes mellitus E11.9 Skin ulcer L98.499 Medical History Medical History Hx of breast cancer (~1990) s/p lumpectomy (left), radiation and chemotherapy History of radiation therapy Right thyroid nodule Surgical History Surgical History (Updated 02/11/23 @ 08:33 by Abigail Prescott RN) History of hysterectomy S/P lumpectomy of breast (~1990) LEFT Tobacco Smoking/Tobacco Use Status: Never Alcohol Alcohol Intake: current Alcohol intake frequency: a few times a week Alcohol type: wine Substance Use Substance use: Never Substance use type: does not use Vital Signs and Lab Results Vital Signs Most Recent Vital Signs in EMR: Most Recent Vital Signs Temp Pulse Resp BP Pulse Ox 36.5 C 76 16 145/66 H 98 02/11/23 08:29 02/11/23 08:29 02/11/23 08:29 02/11/23 08:29 02/11/23 08:29 Point of Care Results Point of Care Results: Finger Stick Blood Glucose 107 02/11/23 08:46 Lab Results Blood Type / Crossmatch: No Data to Display Complete Blood Count: No Data to Display Complete Metabolic Panel: No Data to Display Liver Function Panel: No Data to Display Coagulation Panel: No Data to Display Cardiac Panel: No Data to Display Arterial Blood Gas: No Data to Display Venous Blood Gas: No Data to Display Pancreas Panel: No Data to Display Thyroid Panel: No Data to Display Infectious Disease: No Data to Display Blood Cultures: No Data to Display Toxicology Panel: No Data to Display Imaging and Studies Imaging and Studies Study information below may be from another EMR and interpreted by another provider. Please see original notes in EMR for more complete details. EKG Summary: Conclusion Sinus rhythm. Rate 81, no st elevation, non specific st changes inferior 09/22/19 Anesthesia Assessment and Plan Anesthesia History Personal History: No History of Anesthesia Complications Family History: No Family History of Anesthesia Complications Exercise Tolerance Exercise Tolerance: Metabolic Equivalents>4 Pertinent Negatives Pertinent Negatives: No Symptoms of GERD Cardiac & Pulmonary Exam Cardiac Exam: Heart Murmur Present (Systolic Murmur) Pulmonary Exam: Clear Bilateral Breath Sounds Implantable Cardiac Device Does patient have a Pacemaker or an ICD?: No Airway Exam Known Difficult Airway: No Mallampati Class: 2 Mouth Opening: Normal (> 3cm) Thyromental Distance: Greater than 3 cm Neck Range of Motion: Unable to Assess Neck Circumference: Normal Teeth Condition: Normal Dentition and Unable to Assess ASA Classification ASA Score: ASA 2 Emergency Case?: No NPO Status NPO Status: NPO Clears >2 hours, Solids >8 hours Anesthesia Plan Resuscitation Status: Full Code Anesthesia Technique: General Anesthesia Airway Planned: Natural Airway Monitors Used: Standard Monitors Preoperative Comments:: Echo (), EF 55%, Mild aortic stenosis
[2023-02-11 09:10] VITALS: BMI 22.1
[2023-02-11] MEDS: ceFAZolin 2 GM/50 ML BAG IVPB (09:40)
--- NOTE | 2023-02-11 09:56 | SKI_PTH ---
PATIENT: Hanane Vences LOC: [facility] U#:[id number] AGE/SX: 82/F ROOM: RE02/11/[address]: Gray Reddy MD : 1940 BED: DIS: 02/11/2023 SPEC #: [id number] RECD: 02/11/23 12:46 STATUS: CHERISE RE #: [id number] RUSTAM: 02/11/23 09:[address]: Gray Reddy DEPT: Surgical Specimen RECD BY: Hanane Perales ENTERED: 02/11/23 12:48 SP TYPE: JIM KENNEDY DR: Yang Bhakta Tissues: 1 - SKIN BIOPSY(SHAVE/PUNCH) Procedures: GROSS AND MICRO LEVEL 4 Comments: [id number]
[2023-02-11] MEDS: Bupivacaine 0.25% Pres-Free 30 ML VIAL (10:00)
[2023-02-11 10:20] VITALS: BP 149/78; PULSE 79; RESP 18; TEMP 36.1; O2SAT 98
--- NOTE | 2023-02-11 10:23 | W.ANESPOSTOP ---
Postoperative Evaluation Date, Time and Location Date Performed: 02/11/23 Time Performed: 10:23 Patient Location: Day Surgery Unit Vital Signs Most Recent Imported Vital Signs: Most Recent Vital Signs Temp Pulse Resp BP Pulse Ox 36.1 C L 79 18 149/78 H 98 02/11/23 10:20 02/11/23 10:20 02/11/23 10:20 02/11/23 10:20 02/11/23 10:20 Pain Score Most Recent Pain Score: Most Recent Pain Score Pain Level 0 02/11/23 10:20 Assessment Mental Status: Arousable with meaningful communication Airway and Respiratory Function: Patent airway with normal (patient baseline) respiratory exam Cardiovascular Function: Hemodynamically Stable Hydration Status: Adequately Hydrated Nausea & Vomiting: No Nausea or Vomiting Pain: Pt. Denies Any Pain Peripheral Nerve Block: Patient did not receive a nerve block
[2023-02-11 11:02] VITALS: BP 170/66; PULSE 67; RESP 16; TEMP 36.3; O2SAT 100
--- NOTE | 2023-02-11 11:03 | PDOC.HHF2F_ITS ---
Home Health Referral Home Health Orders Clinical synopsis of why skilled professionals are needed: Patient has a new wound on her left chest wall that requires packing changes Registered Nurse: Check all that apply Assess wound for signs and symptoms of infection, instruct on wound care and/or provide skilled wound care consisting of: Pack wound with saline soaked gauze and dressing. Change daily Encounter Date and Reason: I certify that a FTF encounter for this patient was performed on February 11, 2023 and that such encounter was related to the primary reason the patient requires home health services. The encounter was conducted in the following manner: * By me as the certifying physician, MEMBERSHIP ADMINISTRATOR, PA or * By an inpatient physician, MEMBERSHIP ADMINISTRATOR or PA during an inpatient stay who communicated findings to me, Certification And Authentication I certify that I composed the above information based on my clinical judgment relating to this patient's medical condition and, if applicable, clinical findings communicated to me by the NPP or inpatient physician who performed the FTF encounter. Name of Provider that will be monitoring home health services: Gray Reddy
== END 2023-02-11 12:22 | disposition home or self-care (01) ==
PROVIDERS: PCP Family Medicine; Visit Provider Surgery
PROC: (CPT 11406; principal; 2023-02-11 09:15)
DX: L98.499 Non-pressure chronic ulcer of skin of other sites with unspecified severity (principal); R22.2 Localized swelling, mass and lump, trunk; Z85.3 Personal history of malignant neoplasm of breast; E11.42 Type 2 diabetes mellitus with diabetic polyneuropathy; M86.18 Other acute osteomyelitis, other site
CPT/HCPCS: 11406; 87077; 88305; 87070; 87075; 87205; J0665; J0690; J2001; J2704

== ENCOUNTER → 2023-02-16 10:45 | Outpatient (BNVA) | payer MEDICARE, SELFPAY | PROVIDERS: PCP Family Medicine; Referring Provider Family Medicine; Visit Provider Surgery | DX: S21.102D Unspecified open wound of left front wall of thorax without penetration into thoracic cavity, subsequent encounter (principal); X58.XXXD Exposure to other specified factors, subsequent encounter; B95.4 Other streptococcus as the cause of diseases classified elsewhere ==

== ENCOUNTER → 2023-02-23 14:24 | Outpatient (BNVA) | payer MEDICARE, SELFPAY | PROVIDERS: PCP Family Medicine; Referring Provider Family Medicine; Visit Provider Surgery | DX: S21.102D Unspecified open wound of left front wall of thorax without penetration into thoracic cavity, subsequent encounter (principal); X58.XXXD Exposure to other specified factors, subsequent encounter ==

== ENCOUNTER → 2023-03-01 10:02 | Outpatient (BNVA) | payer MEDICARE, SELFPAY | PROVIDERS: PCP Family Medicine; Referring Provider Family Medicine; Visit Provider Surgery | DX: S21.102D Unspecified open wound of left front wall of thorax without penetration into thoracic cavity, subsequent encounter (principal); X58.XXXD Exposure to other specified factors, subsequent encounter | CPT/HCPCS: 97597 ==

== ENCOUNTER → 2023-03-09 13:10 | Outpatient (BNVA) | payer MEDICARE, SELFPAY | PROVIDERS: PCP Family Medicine; Referring Provider Family Medicine; Visit Provider Surgery | DX: S21.102D Unspecified open wound of left front wall of thorax without penetration into thoracic cavity, subsequent encounter; X58.XXXD Exposure to other specified factors, subsequent encounter | CPT/HCPCS: 97597 ==

== ENCOUNTER → 2023-03-16 13:53 | Outpatient (BNVA) | payer MEDICARE, SELFPAY | PROVIDERS: PCP Family Medicine; Referring Provider Family Medicine; Visit Provider Surgery | DX: S21.102D Unspecified open wound of left front wall of thorax without penetration into thoracic cavity, subsequent encounter (principal); X58.XXXD Exposure to other specified factors, subsequent encounter | CPT/HCPCS: 97597 ==

== ENCOUNTER → 2023-03-23 14:03 | Outpatient (BNVA) | payer MEDICARE, SELFPAY | PROVIDERS: PCP Family Medicine; Referring Provider Family Medicine; Visit Provider Surgery | DX: S21.102D Unspecified open wound of left front wall of thorax without penetration into thoracic cavity, subsequent encounter (principal); X58.XXXD Exposure to other specified factors, subsequent encounter | CPT/HCPCS: 99213 ==

== ENCOUNTER → 2023-03-30 13:41 | Outpatient (BNVA) | payer MEDICARE, SELFPAY | PROVIDERS: PCP Family Medicine; Referring Provider Family Medicine; Visit Provider Surgery | DX: S21.102D Unspecified open wound of left front wall of thorax without penetration into thoracic cavity, subsequent encounter (principal); X58.XXXD Exposure to other specified factors, subsequent encounter | CPT/HCPCS: 99213 ==

== ENCOUNTER → 2023-04-06 14:09 | Outpatient (BNVA) | payer MEDICARE, SELFPAY | PROVIDERS: PCP Family Medicine; Visit Provider Surgery | DX: S21.102D Unspecified open wound of left front wall of thorax without penetration into thoracic cavity, subsequent encounter (principal); X58.XXXD Exposure to other specified factors, subsequent encounter ==

== ENCOUNTER → 2023-04-13 11:09 | Outpatient (BNVA) | payer MEDICARE, SELFPAY | PROVIDERS: PCP Family Medicine; Visit Provider Surgery | DX: S21.102D Unspecified open wound of left front wall of thorax without penetration into thoracic cavity, subsequent encounter (principal); X58.XXXD Exposure to other specified factors, subsequent encounter | CPT/HCPCS: 99213 ==

== ENCOUNTER → 2023-04-20 07:54 | Outpatient (BNVA) | payer MEDICARE, SELFPAY | PROVIDERS: PCP Family Medicine; Visit Provider Surgery | DX: S21.102D Unspecified open wound of left front wall of thorax without penetration into thoracic cavity, subsequent encounter (principal); X58.XXXD Exposure to other specified factors, subsequent encounter | CPT/HCPCS: 97605 ==

== ENCOUNTER → 2023-04-27 08:03 | Outpatient (BNVA) | payer MEDICARE, SELFPAY | PROVIDERS: PCP Family Medicine; Visit Provider Surgery | DX: S21.102D Unspecified open wound of left front wall of thorax without penetration into thoracic cavity, subsequent encounter (principal); X58.XXXD Exposure to other specified factors, subsequent encounter | CPT/HCPCS: 99213 ==

== ENCOUNTER → 2023-05-04 13:58 | Outpatient (BNVA) | payer MEDICARE, SELFPAY | PROVIDERS: PCP Family Medicine; Visit Provider Surgery | DX: S21.102D Unspecified open wound of left front wall of thorax without penetration into thoracic cavity, subsequent encounter (principal); X58.XXXD Exposure to other specified factors, subsequent encounter | CPT/HCPCS: 97597 ==

== ENCOUNTER → 2023-05-18 13:57 | Outpatient (BNVA) | payer MEDICARE, SELFPAY | PROVIDERS: PCP Family Medicine; Referring Provider Family Medicine; Visit Provider Surgery | DX: S21.102D Unspecified open wound of left front wall of thorax without penetration into thoracic cavity, subsequent encounter (principal); X58.XXXD Exposure to other specified factors, subsequent encounter | CPT/HCPCS: 97597 ==

== ENCOUNTER 2023-05-20 13:13 | Outpatient (REF) | payer MEDICARE, SELFPAY ==
--- NOTE | 2023-05-20 11:03 | SKI_PTH ---
PATIENT: Hanane Vences LOC: [facility] U#:[id number] AGE/SX: 83/F ROOM: RE05/20/[address]: FREDY Woodson : 1940 BED: DIS: 05/20/2023 SPEC #: [id number] RECD: 05/20/23 16:21 STATUS: CHERISE REKyleigh #: [id number] RUSTAM: 05/20/23 11:[address]: Cole Johnson DEPT: Surgical Specimen RECD BY: Hanane Perales ENTERED: 05/20/23 16:23 SP TYPE: JIM KENNEDY DR: Yang Bhakta Tissues: 1 - SKIN BIOPSY(SHAVE/PUNCH) 2 - SKIN BIOPSY(SHAVE/PUNCH) Procedures: SKIN LEVEL 4 Comments: [id number]
== END 2023-05-20 13:14 | disposition home or self-care (01) ==
LOC: LBN 13:13
PROVIDERS: PCP Family Medicine; Visit Provider Physician Assistant
DX: D49.2 Neoplasm of unspecified behavior of bone, soft tissue, and skin (principal); C44.329 Squamous cell carcinoma of skin of other parts of face
CPT/HCPCS: 88305

== ENCOUNTER → 2023-05-25 12:57 | Outpatient (BNVA) | payer MEDICARE, SELFPAY | PROVIDERS: PCP Family Medicine; Referring Provider Family Medicine; Visit Provider Surgery | DX: Z51.89 Encounter for other specified aftercare (principal) | CPT/HCPCS: 99213 ==

== ENCOUNTER → 2023-06-08 13:29 | Outpatient (BNVA) | payer MEDICARE, SELFPAY | PROVIDERS: PCP Family Medicine; Referring Provider Family Medicine; Visit Provider Surgery | DX: L98.498 Non-pressure chronic ulcer of skin of other sites with other specified severity (principal) | CPT/HCPCS: 99215 ==

== ENCOUNTER → 2023-06-28 13:59 | Outpatient (BNVA) | payer MEDICARE, SELFPAY | PROVIDERS: PCP Family Medicine; Visit Provider Surgery | DX: S21.102D Unspecified open wound of left front wall of thorax without penetration into thoracic cavity, subsequent encounter (principal); X58.XXXD Exposure to other specified factors, subsequent encounter; L98.498 Non-pressure chronic ulcer of skin of other sites with other specified severity | CPT/HCPCS: 99213 ==

== ENCOUNTER → 2023-07-12 13:02 | Outpatient (BNVA) | payer MEDICARE, SELFPAY | PROVIDERS: PCP Family Medicine; Visit Provider Surgery | DX: S21.102D Unspecified open wound of left front wall of thorax without penetration into thoracic cavity, subsequent encounter (principal); X58.XXXD Exposure to other specified factors, subsequent encounter; L98.498 Non-pressure chronic ulcer of skin of other sites with other specified severity | CPT/HCPCS: 97597 ==

== ENCOUNTER → 2023-07-26 13:02 | Outpatient (BNVA) | payer MEDICARE, SELFPAY | PROVIDERS: PCP Family Medicine; Visit Provider Surgery | DX: S21.102D Unspecified open wound of left front wall of thorax without penetration into thoracic cavity, subsequent encounter (principal); X58.XXXD Exposure to other specified factors, subsequent encounter | CPT/HCPCS: 99213 ==

== ENCOUNTER → 2023-08-08 13:33 | Outpatient (BNVA) | payer MEDICARE, SELFPAY | PROVIDERS: PCP Family Medicine; Referring Provider Family Medicine; Visit Provider Podiatrist | DX: E11.42 Type 2 diabetes mellitus with diabetic polyneuropathy (principal); B35.1 Tinea unguium; I70.203 Unspecified atherosclerosis of native arteries of extremities, bilateral legs; L97.529 Non-pressure chronic ulcer of other part of left foot with unspecified severity; L84 Corns and callosities; M79.674 Pain in right toe(s); M79.675 Pain in left toe(s) | CPT/HCPCS: 11055; 11719; 11720 ==

== ENCOUNTER → 2023-08-09 07:39 | Outpatient (BNVA) | payer MEDICARE, SELFPAY | PROVIDERS: PCP Family Medicine; Referring Provider Family Medicine; Visit Provider Surgery | DX: S21.102D Unspecified open wound of left front wall of thorax without penetration into thoracic cavity, subsequent encounter (principal); X58.XXXD Exposure to other specified factors, subsequent encounter; D49.2 Neoplasm of unspecified behavior of bone, soft tissue, and skin | CPT/HCPCS: 99213 ==

== ENCOUNTER → 2023-08-23 10:41 | Outpatient (BNVA) | payer MEDICARE, SELFPAY | PROVIDERS: PCP Family Medicine; Visit Provider Surgery | DX: S21.102D Unspecified open wound of left front wall of thorax without penetration into thoracic cavity, subsequent encounter (principal); X58.XXXD Exposure to other specified factors, subsequent encounter | CPT/HCPCS: 99213 ==

== ENCOUNTER → 2023-09-12 14:21 | Outpatient (BNVA) | payer MEDICARE, SELFPAY | PROVIDERS: PCP Family Medicine; Referring Provider Family Medicine; Visit Provider Podiatrist | DX: E11.8 Type 2 diabetes mellitus with unspecified complications (principal); E11.42 Type 2 diabetes mellitus with diabetic polyneuropathy; B35.1 Tinea unguium; I70.203 Unspecified atherosclerosis of native arteries of extremities, bilateral legs; L84 Corns and callosities | CPT/HCPCS: 11055 ==

== ENCOUNTER → 2023-09-27 09:24 | Outpatient (BNVA) | payer MEDICARE, SELFPAY | PROVIDERS: PCP Family Medicine; Referring Provider Family Medicine; Visit Provider Surgery | DX: D49.2 Neoplasm of unspecified behavior of bone, soft tissue, and skin (principal) | CPT/HCPCS: 99212 ==

== ENCOUNTER → 2023-12-12 12:52 | Outpatient (BNVA) | payer MEDICARE, SELFPAY | PROVIDERS: PCP Family Medicine; Referring Provider Family Medicine; Visit Provider Podiatrist | DX: E11.42 Type 2 diabetes mellitus with diabetic polyneuropathy (principal); B35.1 Tinea unguium; I70.203 Unspecified atherosclerosis of native arteries of extremities, bilateral legs; L97.529 Non-pressure chronic ulcer of other part of left foot with unspecified severity; L84 Corns and callosities; I73.89 Other specified peripheral vascular diseases; R60.0 Localized edema; R20.8 Other disturbances of skin sensation | CPT/HCPCS: 11719; 11720; 97597 ==

== ENCOUNTER 2023-12-13 13:24 | Outpatient (REF) | payer MEDICARE, SELFPAY ==
[2023-12-13 15:39] LABS: Abs Immature Grans 0.03 10^3/uL (0.0-0.06); Absolute Basophil Count 0.04 10^3/uL (0.0-0.2); Absolute Eosinophil Count 0.18 10^3/uL (0.0-0.7); Absolute Lymphocyte Count 1.83 10^3/uL (1.2-3.4); Absolute Neutrophil Count 3.93 10^3/uL (1.2-6.7); Basophils % 0.6 %; Eosinophils % 2.7 %; HCT 37.3 % (36.0-46.0); HGB 12.3 g/dL (11.2-15.7); Immature Grans % 0.4 %; Lymphocytes % 27.3 %; MCH 31.4 pg (27.0-33.0); MCV 95 fL (80-95); MPV 11.6 fL (8.0-11.0); Monocytes % 10.4 %; Neutrophils % 58.6 %; Platelet Count 203 10^3/uL (130-400); RBC 3.92 10^6/uL (3.93-5.22); RDW 12.2 % (11.7-14.6); RDW-SD 42.5 fL; WBC 6.71 10^3/uL (4.4-10.8)
[2023-12-13 16:19] LABS: ALT 25 U/L (14-59); AST 20 U/L (15-37); Albumin 3.4 g/dL (3.4-5.0); Alkaline Phosphatase 76 U/L (46-116); Anion Gap 8.7 mmol/L (3-11); BUN 24 mg/dL (7-18); Bilirubin, Total 0.41 mg/dL (0.2-1.0); CO2 25.3 mmol/L (21.0-32.0); CREATININE 1.1 mg/dL (0.55-1.02); Calcium 9.2 mg/dL (8.5-10.1); Chloride 105 mmol/L (98-107); Estimated GFR 49.24 (mL/min/1.73m2); Glucose 205 mg/dL (74-106); Potassium 4.5 mmol/L (3.5-5.1); Sodium 139 mmol/L (136-145); Total Protein 7.7 g/dL (6.4-8.2)
== END 2023-12-13 13:25 | disposition home or self-care (01) ==
LOC: NCHCN 13:24
PROVIDERS: PCP Family Medicine; Visit Provider Family Medicine
DX: I10 Essential (primary) hypertension (principal)
CPT/HCPCS: 80053; 85025

== ENCOUNTER → 2024-04-09 12:50 | Outpatient (BNVA) | payer MEDICARE, SELFPAY | PROVIDERS: PCP Family Medicine; Referring Provider Family Medicine; Visit Provider Podiatrist | DX: E11.42 Type 2 diabetes mellitus with diabetic polyneuropathy (principal); B35.1 Tinea unguium; I70.203 Unspecified atherosclerosis of native arteries of extremities, bilateral legs; L84 Corns and callosities; L97.529 Non-pressure chronic ulcer of other part of left foot with unspecified severity; M79.671 Pain in right foot; M79.672 Pain in left foot; R60.0 Localized edema | CPT/HCPCS: 11056; 11721 ==

== ENCOUNTER → 2024-05-22 12:54 | Outpatient (BNVA) | payer MEDICARE, SELFPAY | PROVIDERS: PCP Family Medicine; Referring Provider Family Medicine; Visit Provider Podiatrist | DX: B35.1 Tinea unguium (principal); E11.42 Type 2 diabetes mellitus with diabetic polyneuropathy; I70.203 Unspecified atherosclerosis of native arteries of extremities, bilateral legs; L84 Corns and callosities; L97.529 Non-pressure chronic ulcer of other part of left foot with unspecified severity; M79.671 Pain in right foot; M79.672 Pain in left foot; I73.89 Other specified peripheral vascular diseases; R20.0 Anesthesia of skin; R60.0 Localized edema; R20.8 Other disturbances of skin sensation; L65.9 Nonscarring hair loss, unspecified; L60.2 Onychogryphosis; L85.8 Other specified epidermal thickening | CPT/HCPCS: 11055 ==

== ENCOUNTER 2024-06-12 13:00 | Outpatient (REF) | payer MEDICARE, SELFPAY ==
[2024-06-12 16:53] LABS: COMMENT (LAB VIEW ONLY) 72.22 mg/dL
== END 2024-06-12 13:01 | disposition home or self-care (01) ==
LOC: NCHCN 13:00
PROVIDERS: PCP Family Medicine; Visit Provider Family Medicine
DX: I10 Essential (primary) hypertension (principal)
CPT/HCPCS: 82043; 82570

== ENCOUNTER → 2024-06-19 14:48 | Outpatient (BNVA) | payer MEDICARE, SELFPAY | PROVIDERS: PCP Family Medicine; Referring Provider Family Medicine; Visit Provider Podiatrist | DX: E11.42 Type 2 diabetes mellitus with diabetic polyneuropathy (principal); B35.1 Tinea unguium; I70.203 Unspecified atherosclerosis of native arteries of extremities, bilateral legs; L97.529 Non-pressure chronic ulcer of other part of left foot with unspecified severity; L84 Corns and callosities; M79.671 Pain in right foot; M79.672 Pain in left foot; R09.89 Other specified symptoms and signs involving the circulatory and respiratory systems; R60.0 Localized edema; R20.8 Other disturbances of skin sensation; L65.9 Nonscarring hair loss, unspecified; L60.2 Onychogryphosis; L85.8 Other specified epidermal thickening; R23.8 Other skin changes | CPT/HCPCS: 11056 ==

== ENCOUNTER → 2024-07-18 14:28 | Outpatient (BNVA) | payer MEDICARE, SELFPAY | PROVIDERS: PCP Family Medicine; Referring Provider Family Medicine; Visit Provider Podiatrist | DX: E11.42 Type 2 diabetes mellitus with diabetic polyneuropathy (principal); E11.621 Type 2 diabetes mellitus with foot ulcer; L97.529 Non-pressure chronic ulcer of other part of left foot with unspecified severity; B35.1 Tinea unguium; L84 Corns and callosities; I70.203 Unspecified atherosclerosis of native arteries of extremities, bilateral legs; M79.671 Pain in right foot; M79.672 Pain in left foot | CPT/HCPCS: 11056; 11721 ==

== ENCOUNTER 2024-08-17 11:51 | Outpatient (CLI) | payer MEDICARE, SELFPAY ==
[2024-08-17 13:42] LABS: Vitamin B12 175 pg/mL (193-986)
== END 2024-08-17 11:52 | disposition home or self-care (01) ==
LOC: LBO 11:54
PROVIDERS: PCP Family Medicine; Visit Provider Podiatrist
DX: R79.89 Other specified abnormal findings of blood chemistry (principal)
CPT/HCPCS: 36415; 82607

== ENCOUNTER → 2024-08-20 14:41 | Outpatient (BNVA) | payer MEDICARE, SELFPAY | PROVIDERS: PCP Family Medicine; Referring Provider Family Medicine; Visit Provider Podiatrist | DX: L97.521 Non-pressure chronic ulcer of other part of left foot limited to breakdown of skin (principal); E11.42 Type 2 diabetes mellitus with diabetic polyneuropathy; B35.1 Tinea unguium; I70.203 Unspecified atherosclerosis of native arteries of extremities, bilateral legs; L84 Corns and callosities; M79.674 Pain in right toe(s); M79.675 Pain in left toe(s) | CPT/HCPCS: 99213; 97597 ==

== ENCOUNTER → 2024-09-17 14:42 | Outpatient (BNVA) | payer MEDICARE, SELFPAY | PROVIDERS: PCP Family Medicine; Referring Provider Family Medicine; Visit Provider Podiatrist | DX: E11.621 Type 2 diabetes mellitus with foot ulcer (principal); L97.521 Non-pressure chronic ulcer of other part of left foot limited to breakdown of skin; E11.42 Type 2 diabetes mellitus with diabetic polyneuropathy; B35.1 Tinea unguium; I70.203 Unspecified atherosclerosis of native arteries of extremities, bilateral legs; L84 Corns and callosities; M79.674 Pain in right toe(s); M79.675 Pain in left toe(s); R09.89 Other specified symptoms and signs involving the circulatory and respiratory systems; R60.0 Localized edema; R20.8 Other disturbances of skin sensation; L65.9 Nonscarring hair loss, unspecified; R23.8 Other skin changes; L60.2 Onychogryphosis; L85.8 Other specified epidermal thickening; R20.2 Paresthesia of skin | CPT/HCPCS: 11055 ==

== ENCOUNTER → 2024-11-13 14:58 | Outpatient (BNVA) | payer MEDICARE, SELFPAY | PROVIDERS: PCP Family Medicine; Referring Provider Family Medicine; Visit Provider Podiatrist | DX: B35.1 Tinea unguium (principal); L84 Corns and callosities; E11.42 Type 2 diabetes mellitus with diabetic polyneuropathy; I70.203 Unspecified atherosclerosis of native arteries of extremities, bilateral legs; L97.521 Non-pressure chronic ulcer of other part of left foot limited to breakdown of skin; M79.674 Pain in right toe(s); M79.675 Pain in left toe(s); R09.89 Other specified symptoms and signs involving the circulatory and respiratory systems; R60.0 Localized edema; R20.8 Other disturbances of skin sensation; L65.9 Nonscarring hair loss, unspecified; L60.2 Onychogryphosis; L60.8 Other nail disorders; L85.8 Other specified epidermal thickening | CPT/HCPCS: 11055; 11721 ==

== ENCOUNTER → 2024-11-26 14:29 | Outpatient (BNVA) | payer MEDICARE, SELFPAY | PROVIDERS: PCP Family Medicine; Referring Provider Family Medicine; Visit Provider Podiatrist | DX: L97.521 Non-pressure chronic ulcer of other part of left foot limited to breakdown of skin (principal); E11.42 Type 2 diabetes mellitus with diabetic polyneuropathy; B35.1 Tinea unguium; I70.203 Unspecified atherosclerosis of native arteries of extremities, bilateral legs; L84 Corns and callosities; M79.674 Pain in right toe(s); M79.675 Pain in left toe(s) | CPT/HCPCS: 97597; 93922 ==

== ENCOUNTER 2024-12-26 16:34 | Outpatient (REF) | payer MEDICARE, SELFPAY ==
[2024-12-26 21:00] LABS: HCT 33.2 % (36.0-46.0); HGB 10.9 g/dL (11.2-15.7); MCH 30.4 pg (27.0-33.0); MCHC 32.8 % (32.0-36.0); MCV 93 fL (80-95); MPV 11.4 fL (8.0-11.0); Platelet Count 160 10^3/uL (130-400); RBC 3.58 10^6/uL (3.93-5.22); RDW 12.3 % (11.7-14.6); RDW-SD 42.5 fL; WBC 6.31 10^3/uL (4.4-10.8)
[2024-12-26 21:28] LABS: ALT 22 U/L (10-49); AST 25 U/L (<34); Albumin 4.1 g/dL (3.4-5.0); Alkaline Phosphatase 61 U/L (46-116); Anion Gap 6.6 mmol/L (3-11); BUN 24 mg/dL (9-23); Bilirubin, Total 0.40 mg/dL (0.2-1.2); CO2 26.4 mmol/L (20.0-31.0); Calcium 9.2 mg/dL (8.3-10.6); Chloride 105 mmol/L (98-107); Glucose 256 mg/dL (74-106); Potassium 4.2 mmol/L (3.5-5.1); Sodium 138 mmol/L (136-145); Total Protein 7.3 g/dL (5.7-8.2); Vitamin B12 1504 pg/mL (211-911)
== END 2024-12-26 16:35 | disposition home or self-care (01) ==
LOC: NCHCN 16:34
PROVIDERS: PCP Family Medicine; Visit Provider Family Medicine
DX: E78.2 Mixed hyperlipidemia (principal); I10 Essential (primary) hypertension; R41.3 Other amnesia
CPT/HCPCS: 80053; 83721; 85027; 82607

== ENCOUNTER 2025-01-07 21:11 | Outpatient (REF) | payer MEDICARE, SELFPAY ==
[2025-01-07 22:25] LABS: Iron 51 ug/dL (50-170); Total Iron Binding Capacity 284 ug/dL (250-425); Transferrin Sat 18 % (15-50)
[2025-01-09 11:19] LABS: Ferritin 23 ng/mL (7-271)
== END 2025-01-07 21:12 | disposition home or self-care (01) ==
LOC: NCHCN 21:11
PROVIDERS: PCP Family Medicine; Visit Provider Family Medicine
DX: D64.9 Anemia, unspecified (principal)
CPT/HCPCS: 82728; 83540; 83550